=== PATIENT | male | born 1990 | race Caucasian/White ===

== ENCOUNTER 2018-11-12 23:59 | Emergency (ER) | payer MEDICAID, OTHER ==
[~2018-11-12] VITALS: Ht 180.3 cm; Wt 77.3 kg
[~2018-11-12 23:59] MED LIST: ARIP15TA2 PO; BUPR-93 PO
[2018-11-13 01:49] LABS: BASOPHILS % (AUTO) 0.5 % (0.0-2.0); EOSINOPHILS % (AUTO) 6.4 % (1.0-6.0); HEMOGLOBIN 15.4 g/dL (13.5-17.5); LYMPHOCYTES # (AUTO) 3.1 K/uL (1.0-4.8); LYMPHOCYTES % (AUTO) 31.6 % (22.0-44.0); MEAN CORPUSCULAR HEMOGLOBIN 31.8 pg (26.0-34.0); MEAN CORPUSCULAR HGB CONC 34.2 G/dL (31.0-37.0); MEAN CORPUSCULAR VOLUME 93 fL (80-100); MONOCYTES # (AUTO) 1.3 K/uL (0.1-1.0); MONOCYTES % (AUTO) 13.7 % (2.0-9.0); NEUTROPHILS # (AUTO) 4.7 K/uL (1.8-7.7); NEUTROPHILS % (AUTO) 47.8 % (40.0-70.0); PLATELET COUNT (AUTO) 309 K/uL (150-450); RED BLOOD CELL COUNT(AUTO) 4.83 MIL/uL (4.50-5.90); RED CELL DISTRIBUTION WIDTH 13.1 % (11.5-14.5)
[2018-11-13 01:54] LABS: ANION GAP 4 mmol/L (8-16); CALCIUM, TOTAL 9.2 mg/dL (8.8-10.5); CARBON DIOXIDE 33 mmol/L (22-29); CHLORIDE 105 mmol/L (98-107); CREATININE 0.75 mg/dL (0.60-1.30); GLOMERULAR FILTR. RATE CALC > 60 mL/min (>60); GLUCOSE,RANDOM 91 mg/dL (70-110); POTASSIUM 4.9 mmol/L (3.5-5.1); SODIUM SERUM 142 mmol/L (136-145); UREA NITROGEN, BLOOD 11 mg/dL (7-18)
[2018-11-13 01:59] LABS: ALANINE AMINOTRANSFERASE 47 U/L (12-78); ALBUMIN 3.6 g/dL (3.4-5.0); ALKALINE PHOSPHATASE 65 U/L (46-116); ASPARTATE AMINOTRANSFERASE 40 U/L (15-37); BILIRUBIN,TOTAL 0.2 mg/dL (0.1-1.0); TOTAL PROTEIN, SERUM 6.8 g/dL (6.4-8.2)
[2018-11-13 04:00] VITALS: BP 111/79
== END 2018-11-13 05:39 | disposition home or self-care (01) ==
LOC: EMS 11-13
DX: F20.9 Schizophrenia, unspecified (principal); H10.9 Unspecified conjunctivitis; H44.002 Unspecified purulent endophthalmitis, left eye; F17.210 Nicotine dependence, cigarettes, uncomplicated; F12.90 Cannabis use, unspecified, uncomplicated; F19.90 Other psychoactive substance use, unspecified, uncomplicated; Z88.0 Allergy status to penicillin
CPT/HCPCS: 36415; 80053; 85025; 99284; G0480

== ENCOUNTER 2018-12-14 00:40 | Emergency (ER) | payer OTHER ==
[~2018-12-14] VITALS: Ht 180.3 cm; Wt 77.3 kg
[2018-12-14 01:15] LABS: ANION GAP 5 mmol/L (8-16); CALCIUM, TOTAL 9.4 mg/dL (8.8-10.5); CARBON DIOXIDE 30 mmol/L (22-29); CHLORIDE 104 mmol/L (98-107); CREATININE 0.79 mg/dL (0.60-1.30); GLOMERULAR FILTR. RATE CALC > 60 mL/min (>60); GLUCOSE,RANDOM 89 mg/dL (70-110); POTASSIUM 4.2 mmol/L (3.5-5.1); SODIUM SERUM 139 mmol/L (136-145); UREA NITROGEN, BLOOD 19 mg/dL (7-18)
[2018-12-14 01:21] LABS: ALANINE AMINOTRANSFERASE 64 U/L (12-78); ALBUMIN 3.7 g/dL (3.4-5.0); ALKALINE PHOSPHATASE 73 U/L (46-116); ASPARTATE AMINOTRANSFERASE 35 U/L (15-37); BASOPHILS % (AUTO) 0.4 % (0.0-2.0); BILIRUBIN,TOTAL 0.2 mg/dL (0.1-1.0); EOSINOPHILS % (AUTO) 6.2 % (1.0-6.0); HEMATOCRIT 46.2 % (41-53); HEMOGLOBIN 15.9 g/dL (13.5-17.5); LYMPHOCYTES # (AUTO) 3.6 K/uL (1.0-4.8); LYMPHOCYTES % (AUTO) 29.1 % (22.0-44.0); MEAN CORPUSCULAR HEMOGLOBIN 32.6 pg (26.0-34.0); MEAN CORPUSCULAR HGB CONC 34.5 G/dL (31.0-37.0); MEAN CORPUSCULAR VOLUME 95 fL (80-100); MONOCYTES # (AUTO) 1.5 K/uL (0.1-1.0); NEUTROPHILS # (AUTO) 6.5 K/uL (1.8-7.7); NEUTROPHILS % (AUTO) 52.3 % (40.0-70.0); PLATELET COUNT (AUTO) 347 K/uL (150-450); RED BLOOD CELL COUNT(AUTO) 4.88 MIL/uL (4.50-5.90); TOTAL PROTEIN, SERUM 7.3 g/dL (6.4-8.2)
[2018-12-14 03:41] LABS: AMPHET/METH SCREEN,URINE NEGATIVE (NEGATIVE); BARBITURATE SCREEN, URINE NEGATIVE (NEGATIVE); BENZODIAZEPINES SCREEN,URINE NEGATIVE (NEGATIVE); CANNABINOID SCREEN,URINE POSITIVE (NEGATIVE); COCAINE SCREEN,URINE NEGATIVE (NEGATIVE); METHADONE SCREEN, URINE NEGATIVE (NEGATIVE); OPIATE SCREEN,URINE NEGATIVE (NEGATIVE); PHENCYCLIDINE SCREEN,URINE NEGATIVE (NEGATIVE)
[2018-12-14 05:30] VITALS: BP 134/81
== END 2018-12-14 06:28 | disposition home or self-care (01) ==
LOC: EMS 00:41
DX: F20.9 Schizophrenia, unspecified (principal); F32.9 Major depressive disorder, single episode, unspecified; F17.210 Nicotine dependence, cigarettes, uncomplicated; F12.90 Cannabis use, unspecified, uncomplicated; F19.90 Other psychoactive substance use, unspecified, uncomplicated; F11.90 Opioid use, unspecified, uncomplicated; Z88.0 Allergy status to penicillin
CPT/HCPCS: 36415; 80053; 80307; 85025; 99285; G0480

== ENCOUNTER 2019-02-04 16:18 | Emergency (ER) | payer OTHER ==
[~2019-02-04] VITALS: Ht 180.3 cm; Wt 70.0 kg
[2019-02-04 21:03] LABS: AMPHET/METH SCREEN,URINE NEGATIVE (NEGATIVE); BARBITURATE SCREEN, URINE NEGATIVE (NEGATIVE); BENZODIAZEPINES SCREEN,URINE NEGATIVE (NEGATIVE); CANNABINOID SCREEN,URINE POSITIVE (NEGATIVE); COCAINE SCREEN,URINE NEGATIVE (NEGATIVE); METHADONE SCREEN, URINE NEGATIVE (NEGATIVE); OPIATE SCREEN,URINE NEGATIVE (NEGATIVE)
[2019-02-04 21:04] LABS: PHENCYCLIDINE SCREEN,URINE NEGATIVE (NEGATIVE)
[2019-02-04 21:08] LABS: BASOPHILS % (AUTO) 0.8 % (0.0-2.0); EOSINOPHILS % (AUTO) 7.2 % (1.0-6.0); HEMATOCRIT 46.6 % (41-53); HEMOGLOBIN 15.9 g/dL (13.5-17.5); LYMPHOCYTES # (AUTO) 3.4 K/uL (1.0-4.8); LYMPHOCYTES % (AUTO) 45.4 % (22.0-44.0); MEAN CORPUSCULAR HEMOGLOBIN 31.8 pg (26.0-34.0); MEAN CORPUSCULAR HGB CONC 34.1 G/dL (31.0-37.0); MEAN CORPUSCULAR VOLUME 93 fL (80-100); MONOCYTES # (AUTO) 0.7 K/uL (0.1-1.0); MONOCYTES % (AUTO) 9.4 % (2.0-9.0); NEUTROPHILS # (AUTO) 2.8 K/uL (1.8-7.7); NEUTROPHILS % (AUTO) 37.2 % (40.0-70.0); PLATELET COUNT (AUTO) 339 K/uL (150-450); RED CELL DISTRIBUTION WIDTH 12.6 % (11.5-14.5)
[2019-02-04 21:17] LABS: ANION GAP 9 mmol/L (8-16); CALCIUM, TOTAL 9.9 mg/dL (8.8-10.5); CARBON DIOXIDE 29 mmol/L (22-29); CHLORIDE 104 mmol/L (98-107); CREATININE 0.99 mg/dL (0.60-1.30); GLOMERULAR FILTR. RATE CALC > 60 mL/min (>60); GLUCOSE,RANDOM 91 mg/dL (70-110); POTASSIUM 4.2 mmol/L (3.5-5.1); SODIUM SERUM 142 mmol/L (136-145); UREA NITROGEN, BLOOD 18 mg/dL (7-18)
[2019-02-04 21:25] LABS: ALANINE AMINOTRANSFERASE 40 U/L (12-78); ALBUMIN 3.7 g/dL (3.4-5.0); ALKALINE PHOSPHATASE 62 U/L (46-116); ASPARTATE AMINOTRANSFERASE 35 U/L (15-37); BILIRUBIN,TOTAL 0.3 mg/dL (0.1-1.0); TOTAL PROTEIN, SERUM 6.7 g/dL (6.4-8.2)
[2019-02-04] MEDS ORDERED: QUEtiapine FUMARATE 100 MG TABLET PO ONE (23:00)
[2019-02-04] MEDS ORDERED: LORazepam 1 MG TABLET PO ONE (23:00)
[2019-02-04] MEDS ORDERED: DiphenhydrAMINE HCL 25 MG CAPSULE PO ONE (23:00)
[2019-02-04] MEDS ORDERED: PredniSONE 20 MG TABLET PO ONE (23:00)
[2019-02-04 23:20] VITALS: BP 122/78
== END 2019-02-04 23:46 | disposition home or self-care (01) ==
LOC: EMS 16:19
DX: F32.9 Major depressive disorder, single episode, unspecified (principal); L30.9 Dermatitis, unspecified; F20.9 Schizophrenia, unspecified; F17.210 Nicotine dependence, cigarettes, uncomplicated; F12.90 Cannabis use, unspecified, uncomplicated; F19.90 Other psychoactive substance use, unspecified, uncomplicated; F11.90 Opioid use, unspecified, uncomplicated; Z88.0 Allergy status to penicillin
CPT/HCPCS: 36415; 80053; 80307; 85025; 99284; G0480; J7512

== ENCOUNTER 2019-02-05 07:33 | Emergency (ER) | payer OTHER ==
[~2019-02-05] VITALS: Ht 175.3 cm; Wt 72.7 kg
[2019-02-05 08:10] VITALS: BP 136/90
== END 2019-02-05 08:30 | disposition home or self-care (01) ==
LOC: EMS 07:35
DX: F20.9 Schizophrenia, unspecified (principal); L30.9 Dermatitis, unspecified; F11.90 Opioid use, unspecified, uncomplicated; F12.90 Cannabis use, unspecified, uncomplicated; F15.90 Other stimulant use, unspecified, uncomplicated; F17.210 Nicotine dependence, cigarettes, uncomplicated; Z76.0 Encounter for issue of repeat prescription; Z88.0 Allergy status to penicillin; Z79.899 Other long term (current) drug therapy
CPT/HCPCS: 99406

== ENCOUNTER 2019-02-25 21:21 | Emergency (ER) | payer OTHER ==
[~2019-02-25] VITALS: Ht 180.3 cm; Wt 81.8 kg
[2019-02-25] MEDS ORDERED: QUET25TA PO (22:09)
[2019-02-26 00:59] LABS: ANION GAP 10 mmol/L (8-16); CALCIUM, TOTAL 9.4 mg/dL (8.8-10.5); CARBON DIOXIDE 26 mmol/L (22-29); CHLORIDE 105 mmol/L (98-107); CREATININE 0.91 mg/dL (0.60-1.30); GLOMERULAR FILTR. RATE CALC > 60 mL/min (>60); GLUCOSE,RANDOM 108 mg/dL (70-110); POTASSIUM 3.8 mmol/L (3.5-5.1); SODIUM SERUM 141 mmol/L (136-145); UREA NITROGEN, BLOOD 13 mg/dL (7-18)
[2019-02-26 01:20] LABS: BASOPHILS % (AUTO) 1.5 % (0.0-2.0); EOSINOPHILS % (AUTO) 5.4 % (1.0-6.0); HEMATOCRIT 44.3 % (41-53); HEMOGLOBIN 15.3 g/dL (13.5-17.5); MEAN CORPUSCULAR HEMOGLOBIN 31.8 pg (26.0-34.0); MEAN CORPUSCULAR HGB CONC 34.5 G/dL (31.0-37.0); MEAN CORPUSCULAR VOLUME 92 fL (80-100); MONOCYTES # (AUTO) 1.1 K/uL (0.1-1.0); MONOCYTES % (AUTO) 17.4 % (2.0-9.0); NEUTROPHILS # (AUTO) 2.6 K/uL (1.8-7.7); NEUTROPHILS % (AUTO) 42.7 % (40.0-70.0); PLATELET COUNT (AUTO) 217 K/uL (150-450); RED CELL DISTRIBUTION WIDTH 12.8 % (11.5-14.5)
[2019-02-26 01:22] LABS: ALANINE AMINOTRANSFERASE 28 U/L (12-78); ALBUMIN 3.7 g/dL (3.4-5.0); ALKALINE PHOSPHATASE 64 U/L (46-116); ASPARTATE AMINOTRANSFERASE 20 U/L (15-37); BILIRUBIN,TOTAL 0.2 mg/dL (0.1-1.0); C-REACTIVE PROTEIN QUANT 0.21 mg/dL (0.00-0.30); CREATINE KINASE, TOTAL ONLY 129 U/L (39-308); TOTAL PROTEIN, SERUM 6.8 g/dL (6.4-8.2)
[2019-02-26 03:32] LABS: APPEARANCE,URINE CLEAR (CLEAR); BILIRUBIN,URINE NEGATIVE (NEGATIVE); GLUCOSE, URINE (UA) NEGATIVE (NEGATIVE); KETONES,URINE NEGATIVE (NEGATIVE); LEUKOCYTE ESTERASE ,URINE NEGATIVE (NEGATIVE); NITRATE,URINE NEGATIVE (NEGATIVE); OCCULT BLOOD,URINE NEGATIVE (NEGATIVE); PH,URINE 6.5 (5.0-8.0); PROTEIN,URINE NEGATIVE (NEGATIVE); UROBILINOGEN,URINE 0.2 mg/dL (<=1.0)
[2019-02-26 03:36] LABS: AMPHET/METH SCREEN,URINE NEGATIVE (NEGATIVE); BARBITURATE SCREEN, URINE NEGATIVE (NEGATIVE); BENZODIAZEPINES SCREEN,URINE NEGATIVE (NEGATIVE); CANNABINOID SCREEN,URINE NEGATIVE (NEGATIVE); COCAINE SCREEN,URINE NEGATIVE (NEGATIVE); METHADONE SCREEN, URINE NEGATIVE (NEGATIVE); OPIATE SCREEN,URINE NEGATIVE (NEGATIVE)
[2019-02-26 03:37] LABS: PHENCYCLIDINE SCREEN,URINE NEGATIVE (NEGATIVE)
[2019-02-26 04:24] VITALS: BP 99/61
== END 2019-02-26 04:29 | disposition home or self-care (01) ==
LOC: EMS 21:21
DX: R07.89 Other chest pain (principal); F41.9 Anxiety disorder, unspecified; F32.9 Major depressive disorder, single episode, unspecified; F20.9 Schizophrenia, unspecified; F17.210 Nicotine dependence, cigarettes, uncomplicated; F12.90 Cannabis use, unspecified, uncomplicated; F19.90 Other psychoactive substance use, unspecified, uncomplicated; F11.90 Opioid use, unspecified, uncomplicated; Z88.0 Allergy status to penicillin; Z79.899 Other long term (current) drug therapy
CPT/HCPCS: 86140; 93005

== ENCOUNTER 2023-03-26 11:51 | Inpatient (IN) | payer MEDICAID, OTHER ==
[~2023-03-26] VITALS: Ht 180.3 cm; Wt 64.4 kg
[~2023-03-26 11:51] MED LIST changes: -ARIP15TA2 PO; -BUPR-93 PO; +QUET25TA PO
[2023-03-26] MEDS ORDERED: LORazepam 2 MG/ML VIAL IM ONE (13:00)
[2023-03-26] MEDS ORDERED: DiphenhydrAMINE HCL 50 MG/ML VIAL IM ONE (13:00)
[2023-03-26] MEDS ORDERED: HALOPERIDOL LACTATE 5 MG/ML VIAL IM ONE (13:00)
[2023-03-26 13:19] LABS: BASOPHILS % (AUTO) 0.3 % (0.0-2.0); EOSINOPHILS % (AUTO) 1.2 % (1.0-6.0); HEMATOCRIT 40.5 % (41-53); HEMOGLOBIN 13.8 g/dL (13.5-17.5); LYMPHOCYTES # (AUTO) 2.7 K/uL (1.0-4.8); MEAN CORPUSCULAR HEMOGLOBIN 30.7 pg (26.0-34.0); MEAN CORPUSCULAR VOLUME 90 fL (80-100); MONOCYTES # (AUTO) 1.2 K/uL (0.1-1.0); NEUTROPHILS # (AUTO) 7.2 K/uL (1.8-7.7); NEUTROPHILS % (AUTO) 63.5 % (40.0-70.0); PLATELET COUNT (AUTO) 378 K/uL (150-450); RED BLOOD CELL COUNT(AUTO) 4.48 MIL/uL (4.50-5.90); RED CELL DISTRIBUTION WIDTH 13.8 % (11.5-14.5)
[2023-03-26 13:25] LABS: ANION GAP 9 mmol/L (8-16); CALCIUM, TOTAL 8.7 mg/dL (8.8-10.5); CARBON DIOXIDE 26 mmol/L (22-29); CHLORIDE 105 mmol/L (98-107); GLOMERULAR FILTR. RATE CALC > 60 mL/min (>60); GLUCOSE,RANDOM 84 mg/dL (70-110); SODIUM SERUM 140 mmol/L (136-145); UREA NITROGEN, BLOOD 24 mg/dL (7-18)
[2023-03-26 13:40] LABS: ALANINE AMINOTRANSFERASE 40 U/L (12-78); ALBUMIN 3.3 g/dL (3.4-5.0); ALKALINE PHOSPHATASE 76 U/L (46-116); ASPARTATE AMINOTRANSFERASE 39 U/L (15-37); BILIRUBIN,TOTAL 0.5 mg/dL (0.1-1.0); THYROID STIMULATING HORMONE 0.57 uIU/mL (0.36-3.74); TOTAL PROTEIN, SERUM 6.5 g/dL (6.4-8.2)
[2023-03-26] MEDS ORDERED: HALOPERIDOL 5 MG TABLET PO PRN (14:00)
[2023-03-26 14:24] LABS: COVID AG,FIA SOURCE NASOPHARYNGEAL
[2023-03-26 22:20] VITALS: BP 118/85
[2023-03-26] MEDS ORDERED: MAG HYDROX/AL HYDROX/SIMETH ES 30 ML SUSPENSION UDCUP PO PRN (23:15)
[2023-03-26] MEDS ORDERED: MAGNESIUM HYDROXIDE SUSPENSION 30 ML UDCUP PO PRN (23:15)
[2023-03-26] MEDS ORDERED: ACETAMINOPHEN 325 MG TABLET PO PRN (23:15)
[2023-03-26] MEDS ORDERED: LOPERAMIDE HCL 2 MG CAPSULE PO PRN (23:15)
[2023-03-26] MEDS ORDERED: TUBERCULIN, PURIFIED PROTEIN DERIVATIVE 5 TU/0.1 ML SYRINGE ID ONE (23:15)
[2023-03-26] MEDS ORDERED: GuaiFENesin/D-METHORPHAN [SUGAR-FREE] 200-20MG/10 ML SYRUP UDCUP PO PRN (23:15)
[2023-03-26] MEDS ORDERED: HydrOXYzine PAMOATE 50 MG CAPSULE PO PRN (23:15)
[2023-03-26] MEDS ORDERED: PROMETHAZINE HCL 25 MG TABLET PO PRN (23:15)
[2023-03-27 07:42] LABS: HEMOGLOBIN A1C 5.7 % (3.8-5.6)
[2023-03-27] MEDS: OMEGA-3/DHA/EPA/FISH OIL 1,000 MG CAPSULE PO SCH ×2 (08:26→09:00)
[2023-03-27] MEDS: NALTREXONE HCL 50 MG TABLET PO SCH ×2 (08:26→09:00)
[2023-03-27] MEDS: MULTIVITAMINS WITH MINERALS, THERAPEUTIC TABLET PO SCH ×2 (08:26→09:00)
[2023-03-27] MEDS: FOLIC ACID 1 MG TABLET PO SCH ×2 (08:26→09:00)
[2023-03-27] MEDS: THIAMINE 100 MG TABLET PO SCH ×3 (08:26→17:00)
[2023-03-27 08:40] LABS: FREE T4 (FREE THYROXINE) 0.9 ng/dL (0.76-1.46); THYROID STIMULATING HORMONE 0.35 uIU/mL (0.36-3.74)
[2023-03-27] MEDS ORDERED: PALIPERIDONE PALMITATE 234 MG/1.5 ML SYRINGE IM ONE (09:00)
[2023-03-27] MEDS ORDERED: LORazepam 2 MG/ML VIAL ONE (10:17)
[2023-03-27] MEDS ORDERED: DiphenhydrAMINE HCL 50 MG/ML VIAL ONE (10:18)
[2023-03-27] MEDS ORDERED: HALOPERIDOL LACTATE 5 MG/ML VIAL ONE (10:18)
[2023-03-27] MEDS ORDERED: HALOPERIDOL LACTATE 5 MG/ML VIAL IM ONE (11:15)
[2023-03-27] MEDS ORDERED: DiphenhydrAMINE HCL 50 MG/ML VIAL IM ONE (11:15)
[2023-03-27] MEDS ORDERED: LORazepam 2 MG/ML VIAL IM ONE (11:15)
[2023-03-27] MEDS: OLANZapine 5 MG RAPDIS TABLET PO SCH (20:57)
[2023-03-27] MEDS: DIVALPROEX SODIUM 500 MG ER TABLET PO SCH (20:57)
[2023-03-27] MEDS: MELATONIN 5 MG TABLET PO SCH (20:57)
[2023-03-28] MEDS: QUEtiapine FUMARATE 100 MG TABLET PO PRN (04:09)
[2023-03-28] MEDS ORDERED: HALOPERIDOL LACTATE 5 MG/ML VIAL ONE (08:36)
[2023-03-28] MEDS ORDERED: LORazepam 2 MG/ML VIAL ONE (08:36)
[2023-03-28] MEDS ORDERED: DiphenhydrAMINE HCL 50 MG/ML VIAL ONE (08:37)
[2023-03-28] MEDS ORDERED: LORazepam 2 MG/ML VIAL IM ONE ×2 (08:45→19:00)
[2023-03-28] MEDS ORDERED: HALOPERIDOL LACTATE 5 MG/ML VIAL IM ONE ×2 (08:45→19:00)
[2023-03-28] MEDS ORDERED: DiphenhydrAMINE HCL 50 MG/ML VIAL IM ONE ×2 (08:45→19:00)
[2023-03-28] MEDS: FOLIC ACID 1 MG TABLET PO SCH (09:00)
[2023-03-28] MEDS: NALTREXONE HCL 50 MG TABLET PO SCH (09:00)
[2023-03-28] MEDS: MULTIVITAMINS WITH MINERALS, THERAPEUTIC TABLET PO SCH (09:00)
[2023-03-28] MEDS: THIAMINE 100 MG TABLET PO SCH ×2 (09:00→17:00)
[2023-03-28] MEDS: OMEGA-3/DHA/EPA/FISH OIL 1,000 MG CAPSULE PO SCH (09:00)
[2023-03-28 09:09] VITALS: BP 125/61
[2023-03-28 20:34] VITALS: BP 132/97
[2023-03-28] MEDS: OLANZapine 5 MG RAPDIS TABLET PO SCH ×2 (20:38→21:00)
[2023-03-28] MEDS: MELATONIN 5 MG TABLET PO SCH ×2 (20:38→21:00)
[2023-03-28] MEDS: DIVALPROEX SODIUM 500 MG ER TABLET PO SCH ×2 (20:38→21:00)
[2023-03-29] MEDS: MULTIVITAMINS WITH MINERALS, THERAPEUTIC TABLET PO SCH (09:36)
[2023-03-29] MEDS: OMEGA-3/DHA/EPA/FISH OIL 1,000 MG CAPSULE PO SCH (09:36)
[2023-03-29] MEDS: FOLIC ACID 1 MG TABLET PO SCH (09:36)
[2023-03-29] MEDS: THIAMINE 100 MG TABLET PO SCH ×2 (09:36→16:15)
[2023-03-29] MEDS: NALTREXONE HCL 50 MG TABLET PO SCH (09:36)
[2023-03-29] MEDS ORDERED: HALOPERIDOL LACTATE 5 MG/ML VIAL IM ONE (10:45)
[2023-03-29] MEDS ORDERED: LORazepam 2 MG/ML VIAL IM ONE (10:45)
[2023-03-29] MEDS ORDERED: DiphenhydrAMINE HCL 50 MG/ML VIAL IM ONE (10:45)
[2023-03-29 20:10] VITALS: BP 122/91
[2023-03-29] MEDS: DIVALPROEX SODIUM 500 MG ER TABLET PO SCH (20:31)
[2023-03-29] MEDS: MELATONIN 5 MG TABLET PO SCH (20:32)
[2023-03-29] MEDS: OLANZapine 5 MG RAPDIS TABLET PO SCH (20:32)
[2023-03-30] MEDS: FOLIC ACID 1 MG TABLET PO SCH (09:28)
[2023-03-30] MEDS: THIAMINE 100 MG TABLET PO SCH ×2 (09:28→16:55)
[2023-03-30] MEDS: MULTIVITAMINS WITH MINERALS, THERAPEUTIC TABLET PO SCH (09:28)
[2023-03-30] MEDS: OMEGA-3/DHA/EPA/FISH OIL 1,000 MG CAPSULE PO SCH (09:28)
[2023-03-30] MEDS: NALTREXONE HCL 50 MG TABLET PO SCH (09:29)
[2023-03-30] MEDS: LORazepam 2 MG TABLET PO PRN (09:29)
[2023-03-30 20:27] VITALS: BP 126/82
[2023-03-30] MEDS: OLANZapine 5 MG RAPDIS TABLET PO SCH ×2 (20:55→21:23)
[2023-03-30] MEDS: DIVALPROEX SODIUM 500 MG ER TABLET PO SCH ×2 (20:55→21:22)
[2023-03-30] MEDS: MELATONIN 5 MG TABLET PO SCH ×2 (20:55→21:22)
[2023-03-31] MEDS: OMEGA-3/DHA/EPA/FISH OIL 1,000 MG CAPSULE PO SCH (08:45)
[2023-03-31] MEDS: FOLIC ACID 1 MG TABLET PO SCH (08:45)
[2023-03-31] MEDS: MULTIVITAMINS WITH MINERALS, THERAPEUTIC TABLET PO SCH (08:45)
[2023-03-31] MEDS: THIAMINE 100 MG TABLET PO SCH ×2 (08:46→16:42)
[2023-03-31] MEDS: NALTREXONE HCL 50 MG TABLET PO SCH (08:46)
[2023-03-31 08:47] VITALS: BP 118/78
[2023-03-31] MEDS ORDERED: PALIPERIDONE PALMITATE 156 MG/ML SYRINGE IM ONE (09:00)
[2023-03-31 20:44] VITALS: BP 134/85
[2023-03-31] MEDS: OLANZapine 5 MG RAPDIS TABLET PO SCH (20:53)
[2023-03-31] MEDS: DIVALPROEX SODIUM 500 MG ER TABLET PO SCH (20:53)
[2023-03-31] MEDS: MELATONIN 5 MG TABLET PO SCH (21:10)
[2023-03-31] MEDS: LORazepam 2 MG TABLET PO PRN (21:14)
[2023-04-01] MEDS: THIAMINE 100 MG TABLET PO SCH ×2 (08:49→16:30)
[2023-04-01] MEDS: MULTIVITAMINS WITH MINERALS, THERAPEUTIC TABLET PO SCH (08:49)
[2023-04-01] MEDS: NALTREXONE HCL 50 MG TABLET PO SCH (08:49)
[2023-04-01] MEDS: FOLIC ACID 1 MG TABLET PO SCH (08:49)
[2023-04-01] MEDS: OMEGA-3/DHA/EPA/FISH OIL 1,000 MG CAPSULE PO SCH (08:49)
[2023-04-01 09:29] VITALS: BP 109/68
[2023-04-01] MEDS: OLANZapine 5 MG RAPDIS TABLET PO SCH (20:28)
[2023-04-01] MEDS: MELATONIN 5 MG TABLET PO SCH (20:29)
[2023-04-01] MEDS: DIVALPROEX SODIUM 500 MG ER TABLET PO SCH (20:29)
[2023-04-01] MEDS: LORazepam 2 MG TABLET PO PRN (20:32)
[2023-04-01 20:55] VITALS: BP 105/61
[2023-04-02] MEDS: FOLIC ACID 1 MG TABLET PO SCH (08:38)
[2023-04-02] MEDS: NALTREXONE HCL 50 MG TABLET PO SCH (08:38)
[2023-04-02] MEDS: OMEGA-3/DHA/EPA/FISH OIL 1,000 MG CAPSULE PO SCH (08:38)
[2023-04-02] MEDS: THIAMINE 100 MG TABLET PO SCH ×2 (08:38→16:20)
[2023-04-02] MEDS: MULTIVITAMINS WITH MINERALS, THERAPEUTIC TABLET PO SCH (08:38)
[2023-04-02 09:57] VITALS: BP 104/67
[2023-04-02] MEDS: QUEtiapine FUMARATE 100 MG TABLET PO PRN (16:20)
[2023-04-02] MEDS: LORazepam 2 MG TABLET PO PRN (16:20)
[2023-04-02] MEDS: DIVALPROEX SODIUM 500 MG ER TABLET PO SCH (20:09)
[2023-04-02] MEDS: MELATONIN 5 MG TABLET PO SCH (20:09)
[2023-04-02] MEDS: OLANZapine 10 MG RAPDIS TABLET PO SCH (20:09)
[2023-04-02] MEDS: ZOLPIDEM TARTRATE 10 MG TABLET PO PRN (20:09)
[2023-04-02 20:25] VITALS: BP 141/89
[2023-04-03] MEDS: OMEGA-3/DHA/EPA/FISH OIL 1,000 MG CAPSULE PO SCH (08:14)
[2023-04-03] MEDS: MULTIVITAMINS WITH MINERALS, THERAPEUTIC TABLET PO SCH (08:14)
[2023-04-03] MEDS: FOLIC ACID 1 MG TABLET PO SCH (08:14)
[2023-04-03] MEDS: NALTREXONE HCL 50 MG TABLET PO SCH (08:14)
[2023-04-03] MEDS: THIAMINE 100 MG TABLET PO SCH ×2 (08:14→17:05)
[2023-04-03] MEDS ORDERED: MELA5TAB40 PO (09:10)
[2023-04-03] MEDS ORDERED: OLAN10TA26 PO (09:10)
[2023-04-03] MEDS ORDERED: NALT50TA PO (09:10)
[2023-04-03] MEDS ORDERED: OMEG-135 PO (09:10)
[2023-04-03] MEDS ORDERED: DIVA500T69 PO (09:10)
[2023-04-03] MEDS: QUEtiapine FUMARATE 100 MG TABLET PO PRN (17:05)
[2023-04-03] MEDS: LORazepam 2 MG TABLET PO PRN (17:05)
[2023-04-03 17:31] LABS: GLUCOMETER DEV NAME(LOC) POC.BV
[2023-04-03 20:31] VITALS: BP 110/78
[2023-04-03] MEDS: MELATONIN 5 MG TABLET PO SCH (20:50)
[2023-04-03] MEDS: OLANZapine 10 MG RAPDIS TABLET PO SCH (20:50)
[2023-04-03] MEDS: ZOLPIDEM TARTRATE 10 MG TABLET PO PRN (20:50)
[2023-04-03] MEDS: DIVALPROEX SODIUM 500 MG ER TABLET PO SCH (20:50)
[2023-04-04] MEDS: OMEGA-3/DHA/EPA/FISH OIL 1,000 MG CAPSULE PO SCH (08:20)
[2023-04-04] MEDS: NALTREXONE HCL 50 MG TABLET PO SCH (08:21)
[2023-04-04] MEDS: MULTIVITAMINS WITH MINERALS, THERAPEUTIC TABLET PO SCH (08:21)
[2023-04-04] MEDS: FOLIC ACID 1 MG TABLET PO SCH (08:21)
[2023-04-04] MEDS: THIAMINE 100 MG TABLET PO SCH (08:21)
[2023-04-04] MEDS: LORazepam 2 MG TABLET PO PRN (09:30)
== END 2023-04-04 13:00 | disposition home or self-care (01) | DRG 750 ==
LOC: EMS 11:51 → B3A 18:31
PROVIDERS: ADMIT Psychiatry & Neurology Psychiatry; ATTEND Psychiatry & Neurology Psychiatry
DX: F25.1 Schizoaffective disorder, depressive type (principal); Z91.148 Patient's other noncompliance with medication regimen for other reason; F11.90 Opioid use, unspecified, uncomplicated; Z20.822 Contact with and (suspected) exposure to COVID-19; F15.90 Other stimulant use, unspecified, uncomplicated; F17.210 Nicotine dependence, cigarettes, uncomplicated; F41.9 Anxiety disorder, unspecified; J44.9 Chronic obstructive pulmonary disease, unspecified; Z55.9 Problems related to education and literacy, unspecified; Z59.02 Unsheltered homelessness; Z63.9 Problem related to primary support group, unspecified; Z65.3 Problems related to other legal circumstances; Z78.1 Physical restraint status; Z88.0 Allergy status to penicillin
CPT/HCPCS: 80053; 80061; 80164; 83036; 84439; 84443; 85025; 86592; 99285; G0480; J1200; J1630; J2060; Q9967